=== PATIENT | female | born 1950 | race Caucasian/White ===

== ENCOUNTER 2017-04-17 15:18 | Emergency (ER) | payer MEDICARE, OTHER ==
[~2017-04-17] VITALS: Ht 160 cm; Wt 61.5 kg
[~2017-04-17 15:18] MED LIST: ASC500 PO; CLON2TAB3 PO; FER325 PO; FURO20TA3 PO; LEVO125T PO; OMEG1CAP97 PO; PANT40TA3 PO; QUET300T13 PO; TEMA30CA6 PO; [UNRECOGNIZED DRUG - CODE] PO
[2017-04-17 15:25] VITALS: Ht 160 cm; Wt 61.5 kg
[2017-04-17] MEDS ORDERED: SOD CHLORIDE 0.9% 1,000 ML IV STA (16:08)
[2017-04-17] MEDS ORDERED: LOPERAMIDE 2 MG CAP PO ONE (16:30)
[2017-04-17] MEDS ORDERED: LEVO137T3 PO (17:25)
[2017-04-17] MEDS ORDERED: METF500T4 PO (17:26)
[2017-04-17] MEDS ORDERED: POTA20TA15 PO (17:26)
[2017-04-17] MEDS ORDERED: ATOR20TA38 PO (17:27)
[2017-04-17] MEDS ORDERED: HYDR12.58 PO (17:27)
[2017-04-17] MEDS ORDERED: OMEP40CA6 PO (17:27)
[2017-04-17] MEDS ORDERED: DULO60CA59 PO (17:28)
[2017-04-17] MEDS ORDERED: TRAZ100T15 PO (17:28)
[2017-04-17 18:09] LABS: ADD UMIC NO; UR ASCORBIC ACID NEGATIVE (NEGATIVE); UR BILIRUBIN (Dip) NEGATIVE (NEGATIVE); UR BLOOD (Dip) NEGATIVE (NEGATIVE); UR CLARITY CLEAR (CLEAR); UR COLOR YELLOW (YELLOW); UR GLUCOSE (Dip) NEGATIVE (NEGATIVE); UR KETONES (Dip) NEGATIVE (NEGATIVE); UR LEUKOCYTE ESTERASE (Dip) NEGATIVE Leu/ul (NEGATIVE); UR NITRITE (Dip) NEGATIVE (NEGATIVE); UR SPECIFIC GRAVITY (Dip) 1.025 (1.003-1.030); UR TOTAL PROTEIN (Dip) NEGATIVE (NEGATIVE); UR UROBILINOGEN (Dip) NEGATIVE (NEGATIVE)
[2017-04-17 18:17] LABS: BASOPHIL # 0.1 10^3/ul (0.0-0.1); BASOPHILS % 0.6 % (0.0-2.0); EOSINOPHILS # 0.1 10^3/ul (0.0-0.5); EOSINOPHILS % 0.7 % (0.0-7.0); HEMATOCRIT 40.3 % (37.0-47.0); HEMOGLOBIN 13.4 g/dl (12.0-16.0); LYMPHOCYTES # 2.4 10^3/ul (0.8-2.9); LYMPHOCYTES % 27.3 % (15.0-51.0); MEAN CORPUSCULAR HEMOGLOBIN 30.2 pg (29.0-33.0); MEAN CORPUSCULAR HGB CONC 33.3 g/dl (32.0-37.0); MEAN PLATELET VOLUME 9.9 fl (7.4-10.4); MONOCYTE # 0.5 10^3/ul (0.3-0.9); NEUTROPHIL # 5.7 10^3/ul (1.6-7.5); NEUTROPHILS % 65.1 % (39.0-77.0); PLATELET COUNT 257 10^3/UL (140-415); RED BLOOD COUNT 4.43 10^6/ul (4.20-5.40); RED CELL DISTRIBUTION WIDTH 14.1 % (11.5-14.5); WHITE BLOOD COUNT 8.8 10^3/ul (4.8-10.8)
[2017-04-17 18:26] LABS: INR 0.91; PARTIAL THROMBOPLASTIN TIME 24.9 Sec (25.0-35.0); PROTIME 12.3 Sec (12.2-14.2)
[2017-04-17 18:31] LABS: ALANINE AMINOTRANSFERASE 52 IU/L (13-69); ALBUMIN 4.1 g/dl (3.3-4.9); ALBUMIN/GLOBULIN RATIO 1.57; ALKALINE PHOSPHATASE 95 IU/L (42-121); ANION GAP 11 (8-16); ASPARTATE AMINO TRANSFERASE 25 IU/L (15-46); BILIRUBIN,INDIRECT 0.3 mg/dl (0-1.1); BILIRUBIN,TOTAL 0.3 mg/dl (0.2-1.3); BLOOD UREA NITROGEN 21 mg/dl (7-20); CARBON DIOXIDE 28 mmol/L (21-31); CHLORIDE 108 mmol/L (97-110); CREATININE 0.82 mg/dl (0.44-1.00); GLUCOSE 92 mg/dl (70-220); SODIUM 143 mmol/L (135-144); TOTAL PROTEIN 6.7 g/dl (6.1-8.1)
[2017-04-17 18:56] LABS: TROPONIN-I < 0.012 ng/ml (0.00-0.12)
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
[2017-04-17 19:48] VITALS: BP 152/74; PULSE 68; RESP 18
[2017-04-18] MEDS ORDERED: CIPR500T4 PO (15:15)
[2017-04-18] MEDS ORDERED: LEVO137T24 PO (15:15)
[2017-04-18] MEDS ORDERED: DIPH1TAB PO (15:15)
[2017-04-18] MEDS ORDERED: OMEP40CA6 PO (15:15)
[2017-04-18] MEDS ORDERED: ONDA4TAB14 PO (15:15)
== END 2017-04-17 19:51 | disposition home or self-care (01) ==
LOC: E/R 15:18
DX: E86.0 Dehydration (principal); K62.5 Hemorrhage of anus and rectum; I10 Essential (primary) hypertension; Z79.84 Long term (current) use of oral hypoglycemic drugs
CPT/HCPCS: 36415; 80053; 81003; 84484; 85025; 85610; 85730; 93005; 99284; J7030

== ENCOUNTER 2017-04-18 11:38 | Emergency (ER) | payer MEDICARE, OTHER ==
[~2017-04-18] VITALS: Ht 160 cm; Wt 135.0 kg
[~2017-04-18 11:38] MED LIST changes: +ATOR20TA38 PO; +DULO60CA59 PO; +HYDR12.58 PO; +LEVO137T3 PO; +METF500T4 PO; +OMEP40CA6 PO; +POTA20TA15 PO; +TRAZ100T15 PO
[2017-04-18 11:52] VITALS: Ht 160 cm; Wt 135.0 kg
[2017-04-18] MEDS ORDERED: SOD CHLORIDE 0.9% 1,000 ML IV STA (12:04)
[2017-04-18] MEDS ORDERED: ONDANSETRON 4 MG INJ IV STA (12:04)
[2017-04-18 12:30] LABS: BASOPHILS % 0.4 % (0.0-2.0); EOSINOPHILS # 0.1 10^3/ul (0.0-0.5); EOSINOPHILS % 0.5 % (0.0-7.0); HEMATOCRIT 40.7 % (37.0-47.0); LYMPHOCYTES # 2.5 10^3/ul (0.8-2.9); LYMPHOCYTES % 26.9 % (15.0-51.0); MEAN CORPUSCULAR HGB CONC 31.9 g/dl (32.0-37.0); MEAN CORPUSCULAR VOLUME 90.6 fl (82.0-101.0); MEAN PLATELET VOLUME 10.2 fl (7.4-10.4); MONOCYTE # 0.5 10^3/ul (0.3-0.9); MONOCYTES % 4.8 % (0.0-11.0); NEUTROPHIL # 6.3 10^3/ul (1.6-7.5); NEUTROPHILS % 66.9 % (39.0-77.0); PLATELET COUNT 291 10^3/UL (140-415); RED BLOOD COUNT 4.49 10^6/ul (4.20-5.40); RED CELL DISTRIBUTION WIDTH 14.6 % (11.5-14.5); WHITE BLOOD COUNT 9.4 10^3/ul (4.8-10.8)
[2017-04-18 12:56] LABS: ALANINE AMINOTRANSFERASE 47 IU/L (13-69); ALBUMIN 3.8 g/dl (3.3-4.9); ALBUMIN/GLOBULIN RATIO 1.52; ALKALINE PHOSPHATASE 90 IU/L (42-121); ANION GAP 10 (8-16); ASPARTATE AMINO TRANSFERASE 19 IU/L (15-46); BILIRUBIN,INDIRECT 0.3 mg/dl (0-1.1); BILIRUBIN,TOTAL 0.3 mg/dl (0.2-1.3); BLOOD UREA NITROGEN 16 mg/dl (7-20); CALCIUM 9.7 mg/dl (8.4-10.2); CARBON DIOXIDE 26 mmol/L (21-31); CHLORIDE 109 mmol/L (97-110); CREATININE 0.76 mg/dl (0.44-1.00); GLUCOSE 140 mg/dl (70-220); POTASSIUM 3.5 mmol/L (3.5-5.1); SODIUM 141 mmol/L (135-144); TOTAL PROTEIN 6.3 g/dl (6.1-8.1)
[2017-04-18 13:10] LABS: TROPONIN-I < 0.012 ng/ml (0.00-0.12)
[2017-04-18] MEDS ORDERED: CIPR500T4 PO (15:15)
[2017-04-18] MEDS ORDERED: ONDA4TAB14 PO (15:15)
[2017-04-18] MEDS ORDERED: OMEP40CA6 PO (15:15)
[2017-04-18] MEDS ORDERED: LEVO137T24 PO (15:15)
[2017-04-18] MEDS ORDERED: DIPH1TAB PO (15:15)
--- NOTE | 2017-04-18 15:26 | ERD ---
ER Documentation Chief Complaint Date/Time DATE: 04/18/17 TIME: 15:18 Chief Complaint n/v/d and ap x "months" HPI This is 66-year-old female who is here for months of nausea vomiting diarrhea. The patient was seen here yesterday at this ER and discharged home. Apparently the patient's been going to multiple ERs throughout the [place] area. She says today she was at [employer] and she vomited and then she knelt down and sat on the floor. She did not have any syncope. No chest pain dizziness shortness of breath. She says that she does have chronic vertigo but not dizzy today. She says that her diarrhea is watery and nonbloody. She says her vomit is nonbilious and nonbloody. She says she needs medication refills her omeprazole Synthroid and also states she is having no fevers ROS All systems reviewed and are negative except as per history of present illness. Medications Home Meds Active Scripts Omeprazole* (Omeprazole*) 40 Mg Capsule., 40 MG PO DAILY, #30 CAP Prov:SUE COLORADO DO 04/18/17 Levothyroxine Sodium* (Synthroid*) 137 Mcg Tablet, 137 MCG PO BEFORE BREAKFAST, #30 TAB Prov:SUE [place]ORAD[place] DO 04/18/17 Ciprofloxacin Hcl* (Ciprofloxacin Hcl*) 500 Mg Tablet, 500 MG PO BID for 5 Days , TAB Prov:SUE COLORADO DO 04/18/17 Diphenoxylate HCl/Atropine (Lomotil 2.5-0.025 mg Tablet) 1 Each Tablet, 1 TAB PO QID Y for DIARRHEA, #10 TAB Prov:SUE COLORADO DO 04/18/17 Ondansetron (Ondansetron Odt) 4 Mg Tab.rapdis, 4 MG PO Q6H Y for NAUSEA AND/OR VOMITING, #10 TAB Prov:SUE COLORADO DO 04/18/17 Reported Medications Duloxetine Hcl* (Duloxetine Hcl*) 60 Mg Capsule., 60 MG PO DAILY, #30 CAP 04/17/17 Trazodone Hcl* (Desyrel*) 100 Mg Tab, 100 MG PO QHS, #30 TAB 04/17/17 Omeprazole* (Omeprazole*) 40 Mg Capsule.dr, 40 MG PO DAILY, #30 CAP 04/17/17 Atorvastatin Calcium* (Atorvastatin Calcium*) 20 Mg Tablet, 20 MG PO QHS, #30 TAB 04/17/17 Hydrochlorothiazide* (Hydrochlorothiazide*) 12.5 Mg Tablet, 12.5 MG PO DAILY, # 30 TAB 04/17/17 Potassium Chloride* (K-Dur*) 20 Meq Tab.prt.sr, 20 MEQ PO DAILY, TAB.SA 04/17/17 Metformin* (Glucophage*) 500 Mg Tab, 500 MG PO WITH BREAKFAST, #30 TAB 04/17/17 Levothyroxine Sodium* (Levothyroxine Sodium*) 137 Mcg Tablet, 137 MCG PO BEFORE BREAKFAST, #30 TAB 04/17/17 Clonazepam* (Clonazepam*) 2 Mg Tablet, 2 MG PO DAILY, TAB 01/17/15 Hydromorphone Hcl (Dilaudid) 8 Mg Tablet, 8 MG PO Q4 Y for SEVERE PAIN LEVEL 7- 10 01/08/11 Discontinued Reported Medications Quetiapine Fumarate* (Seroquel*) 300 Mg Tablet, 300 MG PO HS, TAB 01/17/15 Temazepam* (Restoril*) 30 Mg Capsule, 30 MG PO HS Y for INSOMNIA, CAP 01/17/15 Levothyroxine Sodium* (Synthroid*) 125 Mcg Tablet, 125 MCG PO DAILY 01/08/11 Fish Oil/[place]-3 Fatty Acids (Fish Oil 1,000 Mg Capsule) 1 Cap Capsule, 1000 MG PO BID 01/08/11 Discontinued Scripts Ascorbic Acid (Vitamin C) 500 Mg Tab, 500 MG PO BID for 30 Days, TAB Prov:JHON EPPS 01/23/15 Ferrous Sulfate* (Ferrous Sulfate*) 325 Mg Tabec, 325 MG PO BID for 30 Days, TAB Prov:JHON EPPS 01/23/15 Furosemide* (Furosemide*) 20 Mg Tablet, 20 MG PO DAILY, #30 TAB Prov:JHON EPPS 01/23/15 Pantoprazole* (Protonix*) 40 Mg Tablet.dr, 40 MG PO DAILY, #30 TAB Prov:JHON EPPS 01/22/15 Allergies Allergies: Coded Allergies: carbamazepine (Verified Allergy, Severe, 04/18/17) PMhx/Soc History of Surgery: Yes (HYSTERECTOMY,FOOT SX,NOSE SX) Anesthesia Reaction: No Hx Neurological Disorder: No Hx Respiratory Disorders: No Hx Cardiac Disorders: Yes (HTN) Hx Psychiatric Problems: No Hx Miscellaneous Medical Probl: Yes (BUNIONS; RIGHT GREAT TOE PARTIAL AMPUTATION) Hx Alcohol Use: No Hx Substance Use: No Hx Tobacco Use: No Smoking Status: Never smoker FmHx Family History: No coronary disease Physical Exam Vitals Vital Signs Date Time Temp Pulse Resp B/P Pulse Ox O2 Delivery O2 Flow Rate FiO2 04/18/17 11:52 98.4 57 18 128/65 98 Physical Exam Const: Well-developed, well-nourished Head: Atraumatic, normocephalic Eyes: Normal Conjunctiva, PERRLA, EOMI, normal sclera, no nystagmus ENT: Normal External Ears, Nose and Mouth, moist mucus membranes. Neck: Full range of motion. No meningismus, no lymphadenopathy. Resp: Clear to auscultation bilaterally, no wheezing, rhonchi, rales Cardio: Regular rate and rhythm, no murmurs, S1 S2 present Abd: Soft, non tender x 4, non distended. Normal bowel sounds, no guarding or rebound, no pulsitile abdominal masses or bruits Skin: No petechiae or rashes, no ecchymosis , no maculopapular rash Back: No midline or flank tenderness Ext: No cyanosis, or edema, FROM x 4, normal inspection, neurovascularly intact x 4 Neur: Awake and alert, STR 5/5 x 4, sensation intact x 4, no focal findings, cerebellum intact Psych: Normal Mood and Affect Result Diagram: 04/18/17 1220 04/18/17 1220 Results 24 hrs Laboratory Tests Test 04/18/17 12:20 White Blood Count 9.410^3/ul Red Blood Count 4.4910^6/ul Hemoglobin 13.0g/dl Hematocrit 40.7% Mean Corpuscular Volume 90.6fl Mean Corpuscular Hemoglobin 29.0pg Mean Corpuscular Hemoglobin Concent 31.9g/dl Red Cell Distribution Width 14.6% Platelet Count 41108^3/UL Mean Platelet Volume 10.2fl Neutrophils % 66.9% Lymphocytes % 26.9% Monocytes % 4.8% Eosinophils % 0.5% Basophils % 0.4% Nucleated Red Blood Cells % 0.0/100WBC Neutrophils # 6.310^3/ul Lymphocytes # 2.510^3/ul Monocytes # 0.510^3/ul Eosinophils # 0.110^3/ul Basophils # 0.010^3/ul Nucleated Red Blood Cells # 0.010^3/ul Sodium Level 141mmol/L Potassium Level 3.5mmol/L Chloride Level 109mmol/L Carbon Dioxide Level 26mmol/L Anion Gap 10 Blood Urea Nitrogen 16mg/dl Creatinine 0.76mg/dl Glucose Level 140mg/dl Calcium Level 9.7mg/dl Total Bilirubin 0.3mg/dl Direct Bilirubin 0.00mg/dl Indirect Bilirubin 0.3mg/dl Aspartate Amino Transf (AST/SGOT) 19IU/L Alanine Aminotransferase (ALT/SGPT) 47IU/L Alkaline Phosphatase 90IU/L Troponin I < 0.012ng/ml Total Protein 6.3g/dl Albumin 3.8g/dl Globulin 2.50g/dl Albumin/Globulin Ratio 1.52 Current Medications Medications (Trade) Dose Ordered Sig/Roya Route PRN Reason Start Time Stop Time Status Last Admin Dose Admin Sodium Chloride (NS) 1,000 ml @ 1,000 mls/hr Q1H STAT IV 04/18/17 12:04 04/18/17 13:03 DC 04/18/17 12:27 Ondansetron HCl (Zofran Inj) 4 mg ONCE STAT IV 04/18/17 12:04 04/18/17 12:06 DC 04/18/17 12:27 Procedures/MDM Patient's labs are unremarkable. The patient is very histrionic about her history and says she has not eaten or drinking for days however her labs look very well she looks well as well. The patient says she sleeps that she was admitted to the hospital last night long conversation with her telling her why she does not need to be admitted again and her labs look very well. Told her to follow-up with her primary care physician Departure Diagnosis: Primary Impression: Nausea and vomiting Vomiting type: unspecified Vomiting Intractability: non-intractable Qualified Code: R11.2 - Non-intractable vomiting with nausea, unspecified vomiting type Additional Impression: Diarrhea Diarrhea type: unspecified type Qualified Code: R19.7 - Diarrhea, unspecified type Condition: Stable Patient Instructions: Treating Diarrhea, Self-Care for Vomiting and Diarrhea SUE COLORADO DO Apr 18, 2017 15:26
[2017-04-18 15:35] VITALS: BP 118/78; PULSE 88; RESP 18
== END 2017-04-18 16:42 | disposition home or self-care (01) ==
LOC: E/R 11:38
DX: R11.2 Nausea with vomiting, unspecified (principal); R19.7 Diarrhea, unspecified; I10 Essential (primary) hypertension; R40.2142 Coma scale, eyes open, spontaneous, at arrival to emergency department; R40.2252 Coma scale, best verbal response, oriented, at arrival to emergency department; R40.2362 Coma scale, best motor response, obeys commands, at arrival to emergency department; Z79.84 Long term (current) use of oral hypoglycemic drugs
CPT/HCPCS: 36415; 80053; 84484; 85025; 93005; 96374; 99284; J2405; J7030

== ENCOUNTER 2017-04-28 03:47 | Emergency (ER) | payer MEDICARE, OTHER ==
[~2017-04-28] VITALS: Ht 162.6 cm; Wt 73.6 kg
[~2017-04-28 03:47] MED LIST changes: -ASC500 PO; +CIPR500T4 PO; +DIPH1TAB PO; -FER325 PO; -FURO20TA3 PO; -LEVO125T PO; +LEVO137T24 PO; -OMEG1CAP97 PO; +ONDA4TAB14 PO; -PANT40TA3 PO; -QUET300T13 PO; -TEMA30CA6 PO
[2017-04-28 03:57] VITALS: Ht 162.6 cm; Wt 73.6 kg
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
[2017-04-28] MEDS ORDERED: SULF1TAB31 PO (07:51)
[2017-04-28] MEDS ORDERED: CEPH-443 PO (07:51)
[2017-04-28] MEDS ORDERED: DIPHTH/TET/ACEL PERTUSS (ADULT) 0.5 ML VIAL IM* ONE (08:00)
[2017-04-28 08:05] VITALS: BP 125/68; PULSE 82; RESP 18; TEMP 98.7
[2017-04-29] MEDS ORDERED: SULF1TAB31 PO (15:13)
[2017-04-29] MEDS ORDERED: CEPH-443 PO (15:14)
[2017-04-29] MEDS ORDERED: FURO-109 PO (18:05)
== END 2017-04-28 12:20 | disposition home or self-care (01) ==
LOC: FTE 03:47
DX: S91.111A Laceration without foreign body of right great toe without damage to nail, initial encounter (principal); I10 Essential (primary) hypertension; X58.XXXA Exposure to other specified factors, initial encounter; Y92.9 Unspecified place or not applicable; Z23 Encounter for immunization; Z79.84 Long term (current) use of oral hypoglycemic drugs
CPT/HCPCS: 90471; 90715

== ENCOUNTER 2017-04-29 13:31 | Emergency (ER) | payer MEDICARE, OTHER ==
[~2017-04-29] VITALS: Ht 167.6 cm; Wt 73.6 kg
[~2017-04-29 13:31] MED LIST changes: +CEPH-443 PO; +SULF1TAB31 PO
[2017-04-29 13:36] VITALS: Ht 167.6 cm; Wt 73.6 kg
[2017-04-29] MEDS ORDERED: IBUPROFEN 600 MG TAB PO ONE (15:00)
[2017-04-29] MEDS ORDERED: SULF1TAB31 PO (15:13)
[2017-04-29] MEDS ORDERED: CEPH-443 PO (15:14)
[2017-04-29] MEDS ORDERED: FURO-109 PO (18:05)
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
== END 2017-04-29 15:58 | disposition home or self-care (01) ==
LOC: FTE 13:31
DX: L03.115 Cellulitis of right lower limb (principal); I10 Essential (primary) hypertension; Z79.84 Long term (current) use of oral hypoglycemic drugs
CPT/HCPCS: 99284

== ENCOUNTER 2017-04-29 17:26 | Emergency (ER) | payer MEDICARE, OTHER ==
[~2017-04-29] VITALS: Ht 160 cm; Wt 73.6 kg
[2017-04-29 17:27] VITALS: Ht 160 cm; Wt 73.6 kg
[2017-04-29] MEDS ORDERED: FURO-109 PO (18:05)
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
== END 2017-04-29 18:55 | disposition home or self-care (01) ==
LOC: E/R 17:26
DX: Z76.0 Encounter for issue of repeat prescription (principal); R60.9 Edema, unspecified; I10 Essential (primary) hypertension; Z79.84 Long term (current) use of oral hypoglycemic drugs
CPT/HCPCS: 99281

== ENCOUNTER 2017-05-02 22:48 | Emergency (ER) | payer MEDICARE, OTHER ==
[~2017-05-02] VITALS: Ht 160 cm; Wt 60.0 kg
[~2017-05-02 22:48] MED LIST changes: +FURO-109 PO
[2017-05-02 23:02] VITALS: Ht 160 cm; Wt 60.0 kg
[2017-05-03] MEDS ORDERED: IBUPROFEN 600 MG TAB PO ONE
--- NOTE | 2017-05-03 00:54 | RADRPT ---
PROCEDURE: XR bilateral Foot. CLINICAL INDICATION: Trauma. TECHNIQUE: AP, lateral and oblique views of the bilateral foot was obtained. COMPARISON: There are no similar studies submitted for comparison. FINDINGS: There is some deformity of the is the left first metatarsal bone compatible with a healed and chroni c fracture. 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 There is no acute fracture or dislocation. No osseous erosions are identified. The joint spaces are within normal limits. There is no soft tissue swelling. IMPRESSION: No acute fracture or dislocation. RPTAT: HIKT .Jett Barnes MD, MD Date Time Electronically viewed and signed by .Jett Barnes MD, on 05/03/2017 00:54 .T/
[2017-05-03] MEDS ORDERED: NAPR-685 PO (02:27)
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
== END 2017-05-03 02:37 | disposition home or self-care (01) ==
LOC: FTE 22:48
DX: M79.671 Pain in right foot (principal); M79.672 Pain in left foot; I10 Essential (primary) hypertension; Z79.84 Long term (current) use of oral hypoglycemic drugs

== ENCOUNTER 2017-09-23 21:12 | Emergency (ER) | END 2017-09-24 05:07 | disposition home or self-care (01) ==

== ENCOUNTER 2017-10-17 16:06 | Emergency (ER) | END 2017-10-18 01:00 | disposition short-term general hospital (02) ==